=== PATIENT | male | born 1980 | race Caucasian/White ===

== ENCOUNTER → 2019-11-05 11:41 | Outpatient (CLI) | payer OTHER, SELFPAY ==
--- NOTE | ~2019-11-05 | US_ITS ---
US right upper quadrant INDICATION: Elevated liver enzymes PROCEDURE: Realtime right upper abdominal ultrasound. COMPARISON: No prior studies for comparison. FINDINGS: The pancreas is normal without focal mass or pancreatic ductal dilation. Liver echotexture is normal without focal mass or intrahepatic biliary dilatation. There is normal directional flow i n the portal vein. The gallbladder is normal without stones, gallbladder wall thickening or pericholecystic fluid. Comm on bile duct measures 4 mm. No sonographic Hodgson's sign. IMPRESSION: 1: Normal limited abdominal ultrasound. Reviewed, dictated and finalized at location A.
== END ==
PROVIDERS: PCP Student in an Organized Health Care Education/Training Program; Visit Provider Student in an Organized Health Care Education/Training Program
DX: R74.8 Abnormal levels of other serum enzymes (principal)
CPT/HCPCS: 76705

== ENCOUNTER 2022-03-21 20:44 | Emergency (ER) | payer BC, SELFPAY ==
[2022-03-21 21:23] VITALS: BP 158/105; PULSE 79; RESP 20; TEMP 36.4; O2SAT 99
--- NOTE | 2022-03-21 22:40 | PC.NURSE ---
patient states the wait is too long and left
--- NOTE | 2022-03-21 22:53 | PC.NURSE ---
a/o x 4. Ambulatory out of ED c steady, even, unassisted gait.
== END 2022-03-21 22:55 | disposition left against medical advice (07) ==
PROVIDERS: PCP Student in an Organized Health Care Education/Training Program
DX: M79.621 Pain in right upper arm (principal)
CPT/HCPCS: 99199

== ENCOUNTER 2023-04-12 19:00 | Emergency (ER) | payer BC, SELFPAY ==
[2023-04-12 19:11] VITALS: BP 130/73; PULSE 91; RESP 18; TEMP 36.4; O2SAT 96
--- NOTE | 2023-04-12 19:14 | ED.WOUNDLAC ---
HPI - Wound/Laceration General Chief Complaint: Wound/Laceration Stated Complaint: Cut Toe Lt Foot Source: patient and RN notes reviewed History of Present Illness HPI narrative: 42-year-old male presents to urgent care with at side. Patient states prior to arrival he was walking up within stepped when he obtained a cut under his left big toe. Patient denies any other injury. Patient does report drinking whiskey to numb the pain. Patient is unsure of his last tetanus vaccination. Related Data Allergies Allergy/AdvReac Type Severity Reaction Status Date / Time No Known Allergies Allergy Verified 04/12/23 19:09 Review of Systems Review of Systems: CONSTITUTIONAL: Denies fever, chills, or sweats. EYES: Denies visual changes, redness, or discharge. ENT: Denies otalgia and sore throat CARDIOVASCULAR: Denies chest pain, palpitations, or edema. RESPIRATORY: Denies cough or dyspnea. GASTROINTESTINAL: Denies abdominal pain, nausea, vomiting, or diarrhea. GENITOURINARY: Denies dysuria or hematuria. SKIN: toe laceration MUSCULOSKELETAL: Denies back pain, joint pain, or myalgia. NEUROLOGIC: Denies headache, numbness, or weakness. Pertinent positives per HPI. PMFSH Comments At the time of my signature, I reviewed and agree with the nursing past medical, surgical, social, and family history. There is no relevant family history pertinent to the patient complaint. Exam Narrative: GENERAL: This is a well-nourished, well-developed patient, in no apparent distress. HEAD: normocephalic, atraumatic. EYES: Sclera clear/white. Vision is grossly intact. EARS: External ears normal, auditory canals clear and without drainage. Hearing grossly intact. NOSE: External nose normal with no obvious nasal discharge, nares without redness, no rhinorrhea. THROAT: Mucous membranes moist, posterior pharynx clear. NECK: Neck supple, non-tender without lymphadenopathy, masses or thyromegaly. CARDIOVASCULAR: Regular rate RESPIRATORY: no respiratory distress SKIN: 4 cm laceration to left posterior big toe, along the DIP joint. NEURO: awake, alert, and oriented to person, place and time. There were no obvious focal neurologic abnormalities. EXTREMITIES: No clubbing, cyanosis, or edema. No joint tenderness, effusion, or edema noted. BACK: Nontender without deformity or crepitus. No flank tenderness. Course Course Level of Care: Express Care Visit Vital Signs Vital signs: Vital Signs Temperature 97.6 F 04/12/23 19:11 Pulse Rate 91 04/12/23 19:11 Respiratory Rate 18 04/12/23 19:11 Blood Pressure 130/73 04/12/23 19:11 Pulse Oximetry 96 04/12/23 19:11 Oxygen Delivery Room Air 04/12/23 19:11 Temperature 97.6 F 04/12/23 19:11 Pulse Rate 91 04/12/23 19:11 Respiratory Rate 18 04/12/23 19:11 Blood Pressure 130/73 04/12/23 19:11 Pulse Oximetry 96 04/12/23 19:11 Oxygen Delivery Room Air 04/12/23 19:11 Reviewed Procedures Laceration Laceration 1: Date: 04/12/23 Time: 19:45 Site: lower extremity (plantar side of big toe) Side (If applicable): left Size (cm): 4 Description: flap and irregular Depth: simple, single layer Local Anesthetic: lidocaine 1% Amount of anesthesia used (mL): 3 Pre-repair: wound explored and irrigated ====== Skin Level ====== Skin layer closed with: nylon Size (cm): 4-0 Number of sutures: 5 Technique: simple, interrupted ====== Subcutaneous Layer ====== ====== Muscle Layer ====== ====== Tendon Layer ====== Dressing: LACERATION REPAIR: The procedure was explained and verbal consent obtained. The area of the laceration was prepped with Technicare, sterile water and sterilely draped. The wound was anesthetized with 1% Lidocaine with local infiltration. The wound was thoroughly irrigated with 400cc and explored without evidence of foreign body, ten
[2023-04-12] MEDS: TETANUS,DIPHTHERIA,AC PERTUSSIS ADULT (0.5 ML) BOOSTRIX IM (19:32)
== END 2023-04-12 20:02 | disposition home or self-care (01) ==
PROVIDERS: Emergency Provider Nurse Practitioner Family
DX: S91.112A Laceration without foreign body of left great toe without damage to nail, initial encounter (principal); X58.XXXA Exposure to other specified factors, initial encounter; Z23 Encounter for immunization
CPT/HCPCS: 12002; 90471; 90715; 99213; G0463

== ENCOUNTER 2025-08-18 15:41 | Emergency (ER) | payer BC, SELFPAY ==
[2025-08-18 15:52] VITALS: BP 152/94; PULSE 83; RESP 18; TEMP 37.3; O2SAT 99
--- NOTE | 2025-08-18 15:58 | ED.URI ---
HPI - URI/Sore Throat General Chief Complaint: Upper Respiratory Infection Stated Complaint: ear/sinus Source: patient Mode of arrival: ambulatory Limitations: no limitations History of Present Illness HPI Narrative: This is a 45 y/o male patient that presents to the urgent care with reports of cough, sinus pressure and ear pain that began monday evening. patient reports body aches, chills, and low grade fever. Patient has been taking tylenol for body aches. patient denies any other distress. No chest pain, shortness of breath, N/V/D, or distress. MD elicited complaint: fever Onset (ago): day(s) (3) Consistency: constant Severity: mild Description of mucous: green Able to tolerate fluids by mouth: Yes Exacerbating factors: nothing Relieving factors: nothing Context: sick contacts Associated symptoms: denies other symptoms Treatments prior to arrival: acetaminophen and cold medicine Related Data Allergies Allergy/AdvReac Type Severity Reaction Status Date / Time No Known Allergies Allergy Verified 08/18/25 15:45 Review of Systems Review of Systems: All systems reviewed & are unremarkable except as noted in HPI and below Exam Const: General: ill appearing Nutritional Appearance: well nourished Orientation/consciousness: patient oriented x3 Limitations: no limitations HENMT: Head: normal to inspection Ears: TM abnormal bulging on the left, wth effusion purulent on the left, erythematous on the left and with fluid behind the TM on the left Face/Nose/Sinus: Nasal discharge present mucoid Face and sinus: sinus tenderness maxillary Mouth: Yes Normal oral and palatal mucosa present Teeth and gingiva: dentition normal Throat: posterior oropharynx normal Eyes: Conjunctivae: conjunctivae normal Pupils: Equal, round and reactive pupils present EOM: EOMs intact bilaterally Direct Ophthalmoscopy: no photophobia Neck: Neck: normal visual inspection and no lymphadenopathy Chest: Chest palpation & inspection: normal inspection of the chest Resp: Effort & Inspection: normal respiratory effort Auscultation: clear to auscultation bilaterally Cardio: Rate: regular rate Rhythm: regular rhythm GI: GI Palp: Yes Soft to palpation Auscultation: normal bowel sounds Back/Spine/Pelvis: Back: no CVA tenderness Skin: General skin exam: normal color Rashes: no rashes Wounds: no wounds Neuro: General: patient oriented x3 Cranial nerves: Yes Nystagmus not present Speech: normal speech Gait exam (Neuro): Normal gait present Extrem: General: normal to inspection and no clubbing, cyanosis or edema Psych: Mental Status: mental status grossly normal Affect: normal affect Attitude: cooperative Course Course Emergency Course: This is a 45 y/o male patient that presents to the urgent care with reports of cough, sinus pressure and ear pain that began monday evening. patient reports body aches, chills, and low grade fever. Patient has been taking tylenol for body aches. patient denies any other distress. No chest pain, shortness of breath, N/V/D, or distress. vital signs stable. Slight hypertension. Influenza and COVID testing ordered. resulted negative educated patient on treatment options and outpatient follow up. answered all questions to satisfaction. educated patient to Increase fluids, rest, continue with symptomatic management: - cough and cold medication as package instructs - vicks vapor rub - mucinex for cough and congestion - cough drops for cough and sore throat - tylenol and ibuprofen for fever and pain, take antibiotic as instructed, prednisone as instructed, follow up with your primary MD in the next 1-2 days for further evaluation and exam as needed, return to the ER or urgent care with any worrisome sign or symptom. answered all questions to satisfaction, agreeable to plan. patient denies any other concerns to be addressed prior to discharge. Level of Care: Express Care Visit Vital Signs Vital signs: Vital Signs Temperature 99.2 F 08/18/25 15:52 Pulse Rate 83 08/18/25 15:52 Respiratory Rate 18 08/18/25 15:52 Blood Pressure 152/94 H 08/18/25 15:52 Pulse Oximetry 99 08/18/25 15:52 Oxygen Delivery Room Air 08/18/25 15:52 Temperature 99.2 F 08/18/25 15:52 Pulse Rate 83 08/18/25 15:52 Respiratory Rate 18 08/18/25 15:52 Blood Pressure 152/94 H 08/18/25 15:52 Pulse Oximetry 99 08/18/25 15:52 Oxygen Delivery Room Air 08/18/25 15:52 [facility] MDM Narrative Medical decision making narrative: This is a 45 y/o male patient that presents to the urgent care with reports of cough, sinus pressure and ear pain that began monday evening. patient reports body aches, chills, and low grade fever. Patient has been taking tylenol for body aches. patient denies any other distress. No chest pain, shortness of breath, N/V/D, or distress. vital signs stable. Slight hypertension. Influenza and COVID testing ordered. resulted negative educated patient on treatment options and outpatient follow up. answered all questions to satisfaction. educated patient to Increase fluids, rest, continue with symptomatic management: - cough and cold medication as package instructs - vicks vapor rub - mucinex for cough and congestion - cough drops for cough and sore throat - tylenol and ibuprofen for fever and pain, take antibiotic as instructed, prednisone as instructed, follow up with your primary MD in the next 1-2 days for further evaluation and exam as needed, return to the ER or urgent care with any worrisome sign or symptom. answered all questions to satisfaction, agreeable to plan. patient denies any other concerns to be addressed prior to discharge. Differential Diagnosis Differential Diagnosis: sinusitis, viral syndrome Medical Records I have reviewed the following patient records and this information was taken into consideration when formulating the assessment and plan.: previous labs Lab Data MDM Lab Attestation statement: I personally reviewed the patient's lab results. Lab results narrative: covid negative, influenza a&b negative Discharge Plan Discharge Clinical Impression: Sinusitis, Otitis media Patient Disposition: Home Condition: Stable Instructions: Antibiotic Form, Sinusitis (ED), Ear Infection (ED) Additional Instructions: Increase fluids rest continue with symptomatic management: - cough and cold medication as package instructs - vicks vapor rub - mucinex for cough and congestion - cough drops for cough and sore throat - tylenol and ibuprofen for fever and pain continue antibiotic as prescribed continue with prednisone as prescribed. follow up with your primary MD in the next 1-2 days for further evaluation and exam as needed return to the ER or urgent care with any worrisome sign or symptom. Patient Language: Turkmen Prescriptions: New prednisone 10 mg tablet 10 mg PO BID Qty: 10 0RF amoxicillin-pot clavulanate 875-125 mg tablet 1 tablet PO Q12H Qty: 14 0RF Follow-up/Referrals: UNKNOWN,DOCTOR [Primary Care Provider] Time of Disposition: 16:20
[2025-08-18 16:14] LABS: EDCOVIDSCREEN Negative (Negative); EDINFLUASCREEN Negative (Negative); EDINFLUBSCREEN Negative (Negative)
--- OUTSIDE RECORDS SUMMARY | 2025-08-18 17:03 | XMS_ITS | Clinical Summary ---
Author Organization [facility] lin Address [address] [place] [address] Care Team Providers Care Explosive Ordnance Manager Name Role Phone Unavailable Primary Care Provider Unavailabl e Social History Tobacco Use Types Packs/Day Years Used Date Smoking Tobacco: Never Assessed Sex and Gender Information Value Date Recorded Sex Assigned at Not on file Legal Sex Male 8:28 PM EST Gender Identity Not on file Sexual Orientation Not on file Plan of Treatment Not on file Medical Devices Not on file Insurance [employer]
--- OUTSIDE RECORDS SUMMARY | 2025-08-18 17:03 | XMS_ITS | Clinical Summary ---
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
--- OUTSIDE RECORDS SUMMARY | 2025-08-18 17:03 | XMS_ITS | Clinical Summary ---
Author Organization [facility] Address [facility] [place] [address] Care Team Providers Care Surety Bond Agent Name Role Phone Doe Amaya LEASE OPERATOR Primary Care Provider Allergies No known active allergies Medications vitamin D2, ergocalciferol, (DRISDOL) 1.25 mg capsuleIndicati ons:Vitamin D deficiency Take 1 capsule (50,000 Units total) by mouth every 7 days. 12 capsule 1 05/19/2025 Active Active Problems Problem Noted Date Diagnosed Date Class 3 severe obesity with serious comorbidity and body mass index (BMI) of 45.0 to 49.9 in adult, unspecified obesity type 05/16/2025 Cigarette nicotine dependence without complicati on 05/16/2025 Elevated blood pressure reading 05/16/2025 Umbilical hernia without obstruction and without gangrene 05/16/2025 Mixed hyperlipidemia 04/14/2019 Vitamin D deficiency 04/14/2019 Traumatic hematoma of right lower leg, subsequen t encounter 04/14/2019 Elevated liver enzymes 04/14/2019 BMI 40.0-44.9, adult 04/07/2019 Leg skin lesion, right 04/07/2019 Tobacco use disorder 04/07/2019 Encounters Date Type Department Care Team Description 06/21/2025 11:04 AM CDT - 06/21/2025 11:59 PM CDT Hospital Encounter [facility] [address] [place] [address] Doe Amaya, LEASE OPERATOR Discharge Disposition: Home or Self Care (Routine Discharge) 06/21/2025 Travel 05/19/2025 Results Follow-Up [facility] - [address] [place] [address] Doe Amaya, LEASE OPERATOR HEMOGLOBIN, GLYCOSYLATED, HEPATITIS C ANTIBODY, URINALYSIS, Additional followed-up results: 7 from Last 3 Months Immunizations Immunization Administration Dates Next Due Tdap (Adacel) 12/27/2023 Family History Medical History Relation Comments Colon Cancer Maternal Grandmother Colon, mayb e over age 50 Other Mother Diverticulitis Diverticulitis Paternal Grandfather Heart Disease Paternal Grandmother Relation Status Comments Maternal Grandfather Alive Maternal Grandmother Mother Paternal Grandfather Alive Paternal Grandmother Social History Tobacco Use Types Packs/Day Years Used Date Smoking Tobacco: Every Day Cigarettes 0.5 20 Started: 1999 Smokeless Tobacco: Never Tobacco Cessation:Ready to Q uit: Yes; Counseling Given: Yes Alcohol Use Standard Drinks/Week Comments Yes 16.7 (1 standard drink = 0.6 oz pure alcohol) leda PHQ-2 Answer Date Recorded Patient Health Questionnaire-2 Score 0 05/16/2025 Sex and Gender Information Value Date Recorded Sex Assigned at Male 05/16/2025 7:54 AM CDT Legal Sex Male 2:55 PM CDT Gender Identity Male 05/16/2025 7:54 AM CDT Sexual Orientation Not on file Occupation Industry Job Start Date Job End Date Not on file Not on file Not on file Not on file Last Filed Vital Signs Vital Sign Reading Time Taken Comments Blood Pressure 130/90 05/16/2025 8:42 AM CDT Pulse 89 05/16/2025 7:54 AM CDT Temperature 36.9 C (98.4 F) 05/16/2025 7:54 AM CDT Respiratory Rate 05/16/2025 7:54 AM CDT Oxygen Saturation 97% 05/16/2025 7:54 AM CDT Inhaled Oxygen Concentration - - Weight 155.9 kg (343 lb 12.8 oz) 05/16/2025 7:54 AM CDT Height 182.9 cm (6') 05/16/2025 7:54 AM CDT Body Mass Index 46.63 05/16/2025 7:54 AM CDT Plan of Treatment Upcoming Encounters Date Type Department Care Team (Late st Contact Info) Description 09/19/2025 10:00 AM LIVESTOCK RANCH HAND Office Visit [facility] - [place] [address] [facility] [address] [place] [address] Doe Amaya, LEASE OPERATOR [address] [place] [address] Health Maintenance Due Date Last Done Comments Hepatitis B Vaccines (1 of 3 - 19+ 3-dose series) 2000 Pneumococcal Vaccine: Pediat rics (0 to 5 Years) and At-Risk Patients (6 to 49 Years) (1 of 2 - PCV) 2000 HPV Vaccines (1 - 3-dose SCD M series) 2008 Annual Physical 04/05/2020 04/05/2019 COVID-19 Vaccine (1 - 2024-2 6 season) 2025 Influenza Adult (#1) 2025 DTaP, Tdap and Td Vaccines ( 2 - Td or Tdap) 12/26/2033 12/27/2023 Hepatitis C Completed 05/16/2025 PHQ-2 (Physician [place]) Completed 05/16/2025 Hepatitis A Vaccines Aged Out No long er eligible based on patient's age to complete this topic Meningococcal B Vaccine Aged Out No l onger eligible based on patient's age to complete this topic Meningococcal Vaccine Aged Out No mathieu mich eligible based on patient's age to complete this topic RSV Immunizations Under 20 Months Aged Out No longer eligible based on patient's age to complete this topic Procedures Procedure Name Priority Date/Time Associated Diagnosis Comments CT HEART SCREEN CALCIUM SCORE PROMO Routine 06/21/2025 11:23 AM CDT Routine general medical examination at a health care facility HC HEP C AB Routine 05/16/2025 9:10 AM CDT Need for hepatitis C screening test from Last 3 Months or Most Recently Relevant to Health Maintenance Results * CT HEART SCREEN CALCIUM SCORE PROMO (06/21/2025 11:23 AM CDT) Anatomical Region Laterality Modality Chest Computed Tomogra phy 06/22/2025 11:3 4 PM CDT Impressions 06/22/2025 11:35 PM CDT IMPRESSION:===== 1. Total Score: 0 No plaque, very low risk, very unlikely for probability of significant CAD 2. No abnormal pulmonary nodules in the visualized lungs. No acute thoracic abnormalities in the visualized chest. Referred By: DOE AMAYA Interpreted By: Onel Polo MD, 06/22/2025 11:34 PM Narrative 06/22/2025 11:35 PM CDT [address] [address] EXAMINATION: Multislice Helical CT Coronary Calcium Scoring EXAM DATE/TIME: 06/21/2025 11:04 AM REASON FOR EXAM: HLD, smoker COMPARISON: None TECHNIQUE: Multislice helical CT images of the proximal coronary arteries with a computer generated calcification score. Automated exposure control was utilized for dose reduction. Results: Left main: 0 LAD: 0 Circumflex: 0 Right coronary: 0 Total Score: 0 Comments: Visualized lung castanon are clear. No pulmonary nodules or masses appreciated. Included central airways are patent. No pericardial effusion. Left aortic arch. Visualized portion of thoracic aorta normal in caliber. No acute abnormalities in the visualized upper abdomen. Calcium score guidelines: Total Score* Calcium Plaque [place] *Risk *Probability of significant CAD 0 No Plaque Very Low Very unlikely 1-10 Minimal Plaque Low Unlikely 11-100 Mild Plaque Moderate Low likelihood of significant stenosis <50% 101-400 Moderate Plaque Moderately High Moderate likelihood of significant stenosis (>50%) Over 400 Extensive Plaque High High likelihood of significant stenosis (>50%) The amount of coronary artery calcification correlates with the severity of coronary atherosclerosis and the probability of future significant event. Calcification is not site specific for stenosis and does not identify non-calcified atherosclerotic plaque, but rather indicates the extent of atherosclerosis in the coronary arteries overall. The score may be used as an indicator for risk factor modification or additional cardiac testing. Significant change in calcium score over time may be indicative of subsequent disease development or useful as a benchmark to assess preventative programs. ===== Procedure Note Onel Polo MD - 06/22/[address] [address] EXAMINATION: Multislice Helical CT Coronary Calcium Scoring EXAM DATE/TIME: 06/21/2025 11:04 AM REASON FOR EXAM: HLD, smoker COMPARISON: None TECHNIQUE: Multislice helical CT images of the proximal coronary arterieswith a computer generated calcification score. Automated exposure controlwas utilized for dose reduction. Results: Left main: 0 LAD: 0 Circumflex: 0 Right coronary: 0 Total Score: 0 Comments: Visualized lung castanon are clear. No pulmonary nodules or massesappreciated. Included central airways are patent. No pericardial effusion.Left aortic arch. Visualized portion of thoracic aorta normal in caliber.No acute abnormalities in the visualized upper abdomen. Calcium score guidelines: Total Score* Calcium Plaque [place] *Risk *Probability ofsignificant CAD 0 No Plaque Very LowVery unlikely 1-10 Minimal Plaque LowUnlikely 11-100 Mild Plaque ModerateLow likelihood of significant stenosis <50% 101-400 Moderate Plaque Moderately HighModerate likelihood of significant stenosis (>50%) Over 400 Extensive Plaque HighHigh likelihood of significant stenosis (>50%) The amount of coronary artery calcification correlates with the severityof coronary atherosclerosis and the probability of future significantevent. Calcification is not site specific for stenosis and does not identify non- calcifiedatherosclerotic plaque, but rather indicates the extent of atherosclerosisin the coronary arteries overall. The score may be used as an indicator for risk factor modification oradditional cardiac testing. Significant change in calcium score over timemay be indicative of subsequent disease development or useful as a benchmark to assess preventativeprograms. ===== IMPRESSION:===== 1. Total Score: 0 No plaque, very low risk, very unlikely for probabilityof significant CAD 2. No abnormal pulmonary nodules in the visualized lungs. No acutethoracic abnormalities in the visualized chest. Referred By: DOE AMAYA Interpreted By: Onel Polo MD, 06/22/2025 11:34 PM Doe Amaya NP CT Final Resul t * HEPATITIS C ANTIBODY (05/16/2025 9:10 AM CDT) HEPATITIS C AB NON-REACTI VE NON-REACT FERNANDO 05/16/2025 8:56 PM CDT [facility] Comment: ANTIBODIES TO HCV NOT DETECTED. DOES NOT EXCLUDE THE POSSIBILITY OF EXPOSURE TO HCV. 05/16/2025 9:10 AM CDT Doe Amaya NP LABORATORY Final Resul t [facility] [address] [place] [phone], [id number] from Last 3 Months or Most Recently Relevant to Health Maintenance Insurance Care Teams Surety Bond Agent Relationship Specialty Start Date End Date Doe Amaya NP [address] [place] [address] PCP - General NURSE PRACTITIONER 04/14/25
== END 2025-08-18 16:21 | disposition home or self-care (01) ==
PROVIDERS: Emergency Provider Nurse Practitioner Family
DX: J32.9 Chronic sinusitis, unspecified (principal); H66.92 Otitis media, unspecified, left ear; Z20.822 Contact with and (suspected) exposure to COVID-19
CPT/HCPCS: 87426; 87804; 99213; G0463